=== PATIENT | male | born 1965 | race Caucasian/White ===

== ENCOUNTER 2016-08-13 06:41 | Emergency (ER) | payer MEDICAID ==
--- NOTE | ~2016-08-13 | ER ---
PATIENT'S NAME: MIREYA ZELAYA [facility] AGE: 50 Y [address] ROOM: [place] [address] LOCATION: ED ADMIT DATE: 08/13/2016 ER/Outpatient Report DISCHARGE DATE: 08/13/2016 FAMILY PHYSICIAN: PHYSICIAN, NO ATTENDING PHYSICIAN: Lauren Cobos Time of Arrival: 0641 hours. Time of Evaluation: 0659 hours. IDENTIFICATION: A 50-year-old male. CHIEF COMPLAINT: Migraine headache. HISTORY OF PRESENT ILLNESS: The patient had onset of a headache yesterday, right retroorbital, associated with photophobia, nausea, and vomiting. He does have a history of migraine headaches and this is similar to that. PAST MEDICAL HISTORY: ALLERGIES: TO PENICILLIN, CAUSES A RASH. CURRENT MEDICATIONS: Carbamazepine. MEDICAL PROBLEMS: Bipolar disorder and migraine headaches. PRIOR SURGERIES: Ear surgery. SOCIAL HISTORY: The patient lives here in [place]. Tobacco use, 1 pack per day. Alcohol use, denies. Drugs, marijuana. REVIEW OF SYSTEMS: All systems reviewed and negative other than what is noted in the HPI. PHYSICAL EXAMINATION: VITAL SIGNS: Weight 66.2 kg. Blood pressure 114/74, pulse 85, respirations 18, temperature 96.7, and saturations 96%. GENERAL: A 50-year-old male, in no acute distress. PATIENT'S NAME: MIREYA ZELAYA [facility] AGE: 50 Y [address] ROOM: [place] [address] LOCATION: [facility] ADMIT DATE: 08/13/2016 ER/Outpatient Report DISCHARGE DATE: 08/13/2016 FAMILY PHYSICIAN: PHYSICIAN, NO ATTENDING PHYSICIAN: Lauren Cobos HEENT: Head: Normocephalic, atraumatic. Ears: TMs translucent, both ears. Nose: Mucosa pink, no lesions. Mouth: No lesions. Pharynx benign. NECK: Supple. No lymphadenopathy. LUNGS: Clear to auscultation. HEART: Regular rate and rhythm. ABDOMEN: Soft, nondistended, nontender. SKIN: [place], warm, and dry. NEURO: The patient is alert and oriented x4. Cranial nerves 2 through 12 grossly intact. Motor strength 5/5 throughout. Sensation is intact to light touch. IMPRESSION: Migraine headache. PLAN: Toradol 60 mg IM. Phenergan 50 mg IM. Home to rest. Migraine handout. Follow up with primary care physician in 2 to 3 days. Follow up sooner if any problems or concerns. The patient understands and agrees, and all questions have been answered. MD ALEJO CRYSTAL/gonzalo /[id number] d: 08/13/16 0848 t: 08/14/16 1029, OUTPATIENT REPORT
== END 2016-08-13 07:07 | disposition disaster alternative care site (69) ==
LOC: GMED 06:41
DX: G43.909 Migraine, unspecified, not intractable, without status migrainosus (principal); F31.9 Bipolar disorder, unspecified; F17.210 Nicotine dependence, cigarettes, uncomplicated; Z88.0 Allergy status to penicillin
CPT/HCPCS: J1885; J2550

== ENCOUNTER 2016-09-13 05:21 | Emergency (ER) | payer MEDICAID ==
--- NOTE | ~2016-09-13 | ER ---
PATIENT'S NAME: MIREYA ZELAYA [facility] AGE: 50 Y [address] ROOM: [place] [address] LOCATION: [facility] ADMIT DATE: 09/13/2016 ER/Outpatient Report DISCHARGE DATE: 09/13/2016 FAMILY PHYSICIAN: Physician, Unknown ATTENDING PHYSICIAN: Ag Clarke CHIEF COMPLAINT: Headache. HISTORY OF PRESENT ILLNESS: The patient arrives by ambulance. He has had excruciating headache since 10 p.m. He was seen yesterday evening at [facility] for fever and cough and diagnosed with bronchitis and started on antibiotics. He states his headache has gotten worse, but it is most prominent whenever he is coughing. He has had some vomiting. He does have a history of significant headaches. His headache is his typical symptoms, although today it is a little bit less frontal and more in the superior aspects of the anterior head. He denies any neck pain or stiffness associated with this. He does have just general body aches and pains. PAST MEDICAL HISTORY: Documented on the record and reviewed by me. SOCIAL HISTORY: Documented on the record and reviewed by me. MEDICATIONS: Documented on the record and reviewed by me. ALLERGIES: DOCUMENTED ON THE RECORD AND REVIEWED BY ME. REVIEW OF SYSTEMS: All systems reviewed and negative except as noted in the HPI. PHYSICAL EXAMINATION: VITAL SIGNS: On arrival; blood pressure 126/83, pulse 93, respiratory rate is 26, temperature 100.6, and SpO2 is 97% on room air. Pain is rated at 10/10. GENERAL: Male patient, appear older than stated age, recumbent on the exam table in obvious discomfort. No evidence of respiratory distress. Moderate pain. NEUROLOGIC: The patient is awake and alert. He is speaking in full sentences with no speech deficits. No obvious neurologic deficits. No asymmetry on exam. There is no meningismus. The patient has full range of motion of the neck. PATIENT'S NAME: MIREYA ZELAYA [facility] AGE: 50 Y [address] ROOM: [place] [address] LOCATION: [facility] ADMIT DATE: 09/13/2016 ER/Outpatient Report DISCHARGE DATE: 09/13/2016 FAMILY PHYSICIAN: Physician, Unknown ATTENDING PHYSICIAN: Ag Clarke HEENT: Normocephalic and atraumatic. Eyes are PERRL. The oropharynx is with poor dentition. No erythema. No exudates. NECK: Supple. No adenopathy. Trachea is midline. CHEST: Heart regular rate and rhythm. Borderline tachycardia with no murmurs. Lungs are clear to auscultation bilaterally grossly with no rhonchi, wheezes, or rales. ABDOMEN: Soft, nontender, and nondistended. BACK: Normal to inspection and palpation. EXTREMITIES: Warm and well perfused. SKIN: Skin is clean, dry, and intact. LABORATORY DATA AND X-RAYS: Influenza screen is pending. IMPRESSION: 1. Headache. 2. Respiratory symptoms with body aches and compound migraine. EMERGENCY DEPARTMENT COURSE: The patient was seen and evaluated. Influenza was considered. Influenza swab is pending. The patient was given Zofran, Tylenol, Phenergan, and Toradol for his symptoms. He was feeling better. Hand off given to Dr. Cobos at 0600 hours with a plan to see how the patient does and follow up his lab result. The patient's presentation is not currently consistent with meningitis or other concerning course. For those reasons, I will defer further evaluation to the expertise of Dr. Cobos. MD MELIDA PACHECO/gonzalo /[id number] d: 09/14/16 0040 t: 09/18/16 1002, OUTPATIENT REPORT
--- NOTE | ~2016-09-13 | ER ---
PATIENT'S NAME: GABE ZELAYA [facility] AGE: 50 Y [address] ROOM: [place] [address] LOCATION: [facility] ADMIT DATE: 09/13/2016 ER/Outpatient Report DISCHARGE DATE: 09/13/2016 FAMILY PHYSICIAN: Physician, Unknown ATTENDING PHYSICIAN: Ag Clarke HISTORY OF PRESENT ILLNESS: Gabe Zelaya is a 50-year-old male who was evaluated by Dr. Clarke, please refer to his dictation. At shift change, we were waiting on an influenza test which was positive for influenza B. IMPRESSION: 1. Headache, improved with Phenergan, Toradol, Tylenol, and Zofran. Pain improved from a 10 to a 6. 2. Influenza B. PLAN: Influenza handout. Tamiflu 75 mg b.i.d. for 5 days. Fluids and rest. Tylenol or Advil for fever or pain. Follow up with primary care physician next week as needed, follow up sooner if any problems or concerns. The patient and his significant other understand and agree, and all questions were answered. MD ALEJO CRYSTAL/gonzalo /[id number] d: 09/13/16 1237 t: 09/20/16 1926, OUTPATIENT REPORT
== END 2016-09-13 07:30 | disposition disaster alternative care site (69) ==
LOC: GMED 05:21
DX: J10.1 Influenza due to other identified influenza virus with other respiratory manifestations (principal); G43.909 Migraine, unspecified, not intractable, without status migrainosus; F31.9 Bipolar disorder, unspecified; F17.210 Nicotine dependence, cigarettes, uncomplicated; Z79.899 Other long term (current) drug therapy; Z98.890 Other specified postprocedural states; Z88.0 Allergy status to penicillin
CPT/HCPCS: J1885; J2550

== ENCOUNTER 2016-09-13 17:59 | Emergency (ER) | payer MEDICAID ==
--- NOTE | ~2016-09-13 | ER ---
PATIENT'S NAME: MIREYA ZELAYA [facility] AGE: 50 Y [address] ROOM: [place] [address] LOCATION: ED ADMIT DATE: 09/13/2016 ER/Outpatient Report DISCHARGE DATE: 09/13/2016 FAMILY PHYSICIAN: PHYSICIAN, NO ATTENDING PHYSICIAN: Ag Clarke CHIEF COMPLAINT: Worsening fever and worsening headache. HISTORY OF PRESENT ILLNESS: The patient was seen here earlier this morning for headache. He was diagnosed with influenza. He states that he went home and his headache got worse. He has not taken any home medications such as Tylenol or ibuprofen. He states he cannot afford them. He has continued to take his antibiotic. His headache just has not gotten better to the point where he feels like he cannot approach life. The vomiting has been okay. He has had no further blood in his vomitus. No other acute issues. PAST MEDICAL HISTORY: Documented on the record and reviewed by me. SOCIAL HISTORY: Documented on the record and reviewed by me. MEDICATIONS: Documented on the record and reviewed by me. ALLERGIES: DOCUMENTED ON THE RECORD AND REVIEWED BY ME. REVIEW OF SYSTEMS: All systems were negative except as noted in the HPI. PHYSICAL EXAMINATION: VITAL SIGNS: Blood pressure 134/76, pulse 113, respiratory rate 28, temperature is 102.4. GENERAL: Age-appropriate male, sickly appearance, in no obvious pain or respiratory distress. NEUROLOGIC: Awake and alert. GCS is 15. No focal deficits. No asymmetry. HEENT: Normocephalic, atraumatic. Eyes are PERRL. Oropharynx is clear with poor dentition. NECK: Supple. Trachea is midline. No stridor. CHEST: Heart is tachycardic. No murmurs. LUNGS: Grossly clear to auscultation bilateral with no rhonchi, wheezes, or rales. PATIENT'S NAME: MIREYA ZELAYA [facility] AGE: 50 Y [address] ROOM: [place] [address] LOCATION: [facility] ADMIT DATE: 09/13/2016 ER/Outpatient Report DISCHARGE DATE: 09/13/2016 FAMILY PHYSICIAN: PHYSICIAN, NO ATTENDING PHYSICIAN: Ag Clarke EXTREMITIES: Warm and well perfused. BACK: Nontender to palpation. ABDOMEN: Soft, nontender, and nondistended. No rebound or guarding. LABORATORY DATA AND X-RAYS: No imaging was obtained. CBC without any abnormalities. Procalcitonin below threshold. CMS with glucose of 109 and an AST of 45, otherwise unremarkable. CRP is 2.38. INR is 1. IMPRESSION: 1. Nausea and vomiting secondary to influenza. 2. Report of hematemesis with no evidence. 3. Intractable headache. EMERGENCY DEPARTMENT COURSE: The patient was seen and evaluated as above. The patient states he came in for the blood clots, however, based on his conversation his largest concern is definitely his headache. His vomiting is scant and nonreproducible. He is hemodynamically stable with a normal hemoglobin. He is not a high risk at this time and his reported hematemesis is likely secondary to Prudence-Rivera tear or esophagitis/gastritis. No vomiting or even retching in the emergency department. The patient's headache was addressed. It was not consistent with subarachnoid hemorrhage and he does not have any evidence of meningitis. He was given a cocktail of Phenergan, Toradol, Tylenol, Compazine and Benadryl in addition to a liter of fluids. His tachycardia improved. His headache improved significantly. His nausea and vomiting have resolved. He will be discharged home with prescriptions for Tylenol and ibuprofen to help him stay ahead of his headache. He needs to follow up with his primary care provider. I explained that he would continue to feel poorly for the next 24 to 48 hours, but should begin feeling better later on in the weekend. All questions were answered. The patient was discharged in good condition. MD MELIDA PACHECO/gonzalo /[id number] d: 09/14/16518 t: 09/18/16 1002, OUTPATIENT REPORT
[2016-09-13 18:40] LABS: BASOPHIL % 0.4 %; EOSINOPHIL % 0.1 %; HEMATOCRIT 42.8 % (37.0-53.0); HEMOGLOBIN 14.9 g/dL (12.0-17.0); IMMATURE GRANULOCYTE % 0.3 %; LYMPHOCYTE # 0.9 K/uL (0.8-4.0); LYMPHOCYTE % 13.4 %; MCH 29.8 pg (27.0-34.0); MCHC 34.8 gm/dL (32.0-36.5); MCV 85.6 fl (83.0-98.0); MONOCYTE # 0.8 K/uL (0.0-1.0); MONOCYTE % 11.3 %; MPV 9.4 fl (9.4-12.4); NEUTROPHIL # (ANC) 5.2 K/uL (1.4-9.0); NEUTROPHIL % 74.5 %; NRBC % 0 /100WBC (0-0.00); PLATELET COUNT 196 K/uL (150-450); RDW-CV 13.6 % (11.9-14.6)
[2016-09-13 18:48] LABS: INR - (THERAPEUTIC) 1.01 (0.92-1.07); PROTIME 10.6 SECONDS (9.8-11.4); PTT 35 SECONDS (25-32)
[2016-09-13 18:59] LABS: ALK PHOS 81 IU/L (33-138); ALT 24 IU/L (12-78); ANION GAP 11.9 (10.0-19.0); AST 45 IU/L (10-40); BLOOD UREA NITROGEN 18 mg/dL (6-24); CALCIUM 8.4 mg/dL (8.5-10.5); CHLORIDE 104 mMol/L (96-110); CO2 23 mMol/L (22-32); ESTIMATED GFR (MDRD EQUATION) > 60; POTASSIUM 3.9 mMol/L (3.7-5.1); SODIUM 135 mMol/L (135-145); TOTAL BILIRUBIN 0.3 mg/dL (0.0-1.5); TOTAL PROTEIN 7.5 g/dL (6.0-8.4)
== END 2016-09-13 20:13 | disposition disaster alternative care site (69) ==
LOC: GMED 17:59
PROVIDERS: Emergency Medicine
DX: J11.1 Influenza due to unidentified influenza virus with other respiratory manifestations (principal); K92.0 Hematemesis; F31.9 Bipolar disorder, unspecified; Z87.891 Personal history of nicotine dependence; Z88.0 Allergy status to penicillin; Z79.899 Other long term (current) drug therapy
CPT/HCPCS: J0780; J1200; J1885; J2550; J7030

== ENCOUNTER → 2016-09-13 | Outpatient (CLI) | payer MEDICAID | END | disposition disaster alternative care site (69) | LOC: GMED 05:09 → GAMB 05:09 | DX: G43.909 Migraine, unspecified, not intractable, without status migrainosus (principal); J40 Bronchitis, not specified as acute or chronic; Z79.899 Other long term (current) drug therapy; Z88.0 Allergy status to penicillin | CPT/HCPCS: A0425; A0429 ==

== ENCOUNTER 2016-10-07 11:36 | Emergency (ER) | payer MEDICAID ==
--- NOTE | ~2016-10-07 | ER ---
PATIENT'S NAME: MIREYA ZELAYA [facility] AGE: 50 Y [address] ROOM: [place] [address] LOCATION: ED ADMIT DATE: 10/07/2016 ER/Outpatient Report DISCHARGE DATE: 10/07/2016 FAMILY PHYSICIAN: Physician, Unknown ATTENDING PHYSICIAN: Ag Clarke Time of Arrival: 1151 hours. Time of Evaluation: 1155 hours. CHIEF COMPLAINT: Left-sided abdominal pain. HISTORY OF PRESENT ILLNESS: The patient states he woke this morning with left lower abdominal pain that radiates around to the left flank area. States that it is painful to urinate. He has not been able to pee yet today. States he last voided last night. States he has been nauseated, but not vomited. Did drink some caffeine this morning. He had a bowel movement this morning. Reports he has never had any pain like this before. ALLERGIES: PENICILLIN. MEDICATIONS: On his chart and reviewed by me. PAST MEDICAL HISTORY: Migraine headaches, seizure disorder, bipolar disorder. PAST SURGICAL HISTORY: Ear surgery. SOCIAL HISTORY: Does smoke a pack per day and has for the last 30 years. Smokes marijuana on occasional basis. Denies use of alcohol. REVIEW OF SYSTEMS: All negative other than those mentioned in the HPI. PHYSICAL EXAMINATION: VITAL SIGNS: He weighs 60.5 kg, blood pressure is 119/103, pulse of 86, respirations 22, temperature of 97.4, O2 saturation is 96% on room air. GENERAL: He is awake, alert, and oriented x4. He is very uncomfortable. SKIN: [place], warm, and dry. RESPIRATIONS: Even and nonlabored. Lung sounds are clear throughout. PATIENT'S NAME: MIREYA ZELAYA [facility] AGE: 50 Y [address] ROOM: [place] [address] LOCATION: [facility] ADMIT DATE: 10/07/2016 ER/Outpatient Report DISCHARGE DATE: 10/07/2016 FAMILY PHYSICIAN: Physician, Unknown ATTENDING PHYSICIAN: Ag Clarke HEART: Regular rate and rhythm. ABDOMEN: Soft. Very tender in the left lower quadrant. He is tender in the left flank area. He did ambulate to the bathroom. Attempted to get a UA without success. EMERGENCY ROOM COURSE: Saline lock was initiated. Fluids of normal saline were started at a wide- open rate. He was given Toradol 30 mg IV. Lab work was drawn. CBC is within normal limits. Chem panel is within normal limits. The patient was able to get some relief with the Toradol. He was able to go to the bathroom and urinate and give us a clean-catch UA. It does show positive for blood, white blood cell is 0-2, bacteria is rare. CT scan was completed. Radiologist reports the patient has a 4 mm partial obstructing at the distal left ureter. The patient was feeling much better with the fluids. Able to rest more comfortably on the cart. His vital signs, blood pressure did come down to 120/74. IMPRESSION: Renal calculi. PLAN: Home, rest, fluids. Prescription was written for [place] for pain. He is to follow up with Urology in the next 2 to 3 days. Return to the ER as needed. He verbalized understanding. BENJAMIN RASHEED APRN FOR MD LISA PACHECO/gonzalo /[id number] d: 10/07/162146 t: 10/21/16 07, OUTPATIENT REPORT
[2016-10-07 12:26] LABS: BASOPHIL # 0.1 K/uL (0.0-0.2); BASOPHIL % 1.1 %; EOSINOPHIL # 0.4 K/uL (0.0-0.5); EOSINOPHIL % 4.5 %; HEMATOCRIT 41.3 % (37.0-53.0); HEMOGLOBIN 13.8 g/dL (12.0-17.0); IMMATURE GRANULOCYTE % 0.3 %; LYMPHOCYTE # 4.2 K/uL (0.8-4.0); LYMPHOCYTE % 47.7 %; MCH 29.4 pg (27.0-34.0); MCHC 33.4 gm/dL (32.0-36.5); MCV 88.1 fl (83.0-98.0); MONOCYTE # 0.9 K/uL (0.0-1.0); MONOCYTE % 9.9 %; NEUTROPHIL # (ANC) 3.2 K/uL (1.4-9.0); NEUTROPHIL % 36.5 %; NRBC % 0 /100WBC (0-0.00); RBC 4.69 M/uL (4.00-6.00); RDW-CV 14.1 % (11.9-14.6); WBC 8.7 K/uL (4.0-11.0)
[2016-10-07 12:30] LABS: PLATELET COUNT 315 K/uL (150-450)
[2016-10-07 12:49] LABS: BILIRUBIN URINE NEGATIVE (NEGATIVE); BLOOD URINE 250 /UL (NEGATIVE); COLOR URINE YELLOW (YELLOW); GLUCOSE URINE NEGATIVE (NEGATIVE); KETONE URINE NEGATIVE (NEGATIVE); LEUKOCYTES URINE NEGATIVE /UL (NEGATIVE); NITRITE URINE NEGATIVE (NEGATIVE); PROTEIN URINE 15 mg/dL (NEGATIVE); SPEC GRAVITY URINE 1.015 (1.003-1.035); TURBIDITY URINE CLEAR (CLEAR); UROBILINOGEN URINE NORMAL (NORMAL)
[2016-10-07 12:50] LABS: ALBUMIN 4.3 gm/dL (3.5-5.0); ALK PHOS 78 IU/L (33-138); ALT 19 IU/L (12-78); ANION GAP 11.4 (10.0-19.0); AST 13 IU/L (10-40); BLOOD UREA NITROGEN 16 mg/dL (6-24); CALCIUM 8.9 mg/dL (8.5-10.5); CHLORIDE 113 mMol/L (96-110); CO2 22 mMol/L (22-32); CREATININE 1.2 mg/dL (0.6-1.3); ESTIMATED GFR (MDRD EQUATION) > 60; POTASSIUM 4.4 mMol/L (3.7-5.1); SODIUM 142 mMol/L (135-145); TOTAL BILIRUBIN 0.5 mg/dL (0.0-1.5); TOTAL PROTEIN 7.5 g/dL (6.0-8.4)
[2016-10-07 12:57] LABS: WBC URINE 0-2 #/HPF (NEGATIVE)
[2016-10-07 12:58] LABS: BACTERIA URINE RARE (NEGATIVE); EPITHELIAL URINE 0-2 #/HPF (NEGATIVE); MUCUS URINE 1+ (NEGATIVE); RBC URINE FULL FIELD #/HPF (NEGATIVE)
== END 2016-10-07 13:40 | disposition disaster alternative care site (69) ==
LOC: GMED 11:36
PROVIDERS: Nurse Practitioner Family
DX: N13.2 Hydronephrosis with renal and ureteral calculous obstruction (principal); G40.909 Epilepsy, unspecified, not intractable, without status epilepticus; F31.9 Bipolar disorder, unspecified; F17.210 Nicotine dependence, cigarettes, uncomplicated; Z79.899 Other long term (current) drug therapy; Z88.0 Allergy status to penicillin; Z98.890 Other specified postprocedural states
CPT/HCPCS: J1885; J7030